=== PATIENT | female | born 1990 | race Caucasian/White ===

== ENCOUNTER → 2016-04-26 | Outpatient (CLI) | payer OTHER ==
--- NOTE | 2016-04-26 19:21 | KCIC ---
PROCEDURE Second trimester OB ultrasound. HISTORY Uterine size discrepancy. TECHNIQUE Second trimester transabdominal OB ultrasound was performed. COMPARISON None. FINDINGS There is a single live intrauterine with heart tones of 153 beats per minute. Estimated gestational age by ultrasound is 19 weeks 0 days for an JUDAH by ultrasound of September 20, 2016, concordant with the JUDAH by LMP of September 18, 2016. Biparietal diameter measures 4.17 centimeters, 18 weeks 4 days. Head circumference measures 15.93 centimeters, 18 weeks 5 days. Abdominal circumference measures 13.68 centimeters, 19 weeks 1 day. Femur length measures 3.06 centimeters, 19 weeks 3 days. Estimated weight is 280 grams. Percentile is 39 percent. HC/AC ratio is 1.16. Placenta is anterior without evidence of previa or abruption. Amniotic fluid index is 10.9 centimeters, within normal limits. Cervix is within normal limits. survey including four-chamber heart, three-vessel cord, cord insertion, stomach, kidneys, bladder, spine, and intracranial contents is within normal limits. Presentation is cephalic. Extremities are within normal limits. IMPRESSION Single live intrauterine measuring 19 weeks 0 days by ultrasound. heart tones are 153 beats per minute. Electronically signed by: Alexys Gregory MD (Apr 26, 2016 19:19:59)
== END | disposition home or self-care (01) ==
LOC: KCIC US 11:31
PROVIDERS: ATTEND Obstetrics & Gynecology
DX: O26.842 Uterine size-date discrepancy, second trimester (principal); Z3A.19 19 weeks gestation of pregnancy
CPT/HCPCS: 76805

== ENCOUNTER 2016-07-28 10:59 | Emergency (ER) | payer OTHER ==
[~2016-07-28] VITALS: Ht 162.6 cm; Wt 76.2 kg
[2016-07-28 11:11] VITALS: BP 103/86
[2016-07-28] MEDS ORDERED: ACET1TAB33 PO (11:42)
[2016-07-28] MEDS ORDERED: AMOX500C PO (11:42)
--- NOTE | 2016-07-28 11:42 | PHYS DOC ---
Past Medical History Past Medical History: Other Additional Past Medical Histor: MS Past Surgical History: No Surgical History Alcohol Use: None Drug Use: None Adult General Chief Complaint Chief Complaint: DENTAL PROBLEM HPI HPI Patient is a 26 year old female presents emergency Department today with complaint of atraumatic right-sided dental pain for approximately 3-4 days. Patient does have a history of poor dental health/dental caries. She denies antibiotic use or dental work within the past 30 days. Patient is currently with her last trimester . She is followed by Dr. Mo. She denies abdominal/pelvic pain, vaginal bleeding or vaginal discharge. Review of Systems Review of Systems Constitutional: Denies fever or chills [] Eyes: Denies change in visual acuity, redness, or eye pain [] HENT: Denies nasal congestion or sore throat [] Respiratory: Denies cough or shortness of breath [] Cardiovascular: No additional information not addressed in HPI [] GI: Denies abdominal pain, nausea, vomiting, bloody stools or diarrhea [] : Denies dysuria or hematuria [] Musculoskeletal: Denies back pain or joint pain [] Integument: Denies rash or skin lesions [] Neurologic: Denies headache, focal weakness or sensory changes [] Endocrine: Denies polyuria or polydipsia [] Allergies Allergies Allergies Coded Allergies Type Severity Reaction Last Updated Verified No Known Drug Allergies 07/28/16 No Physical Exam Physical Exam Constitutional: Well developed, well nourished, no acute distress, non-toxic appearance. HENT: Normocephalic, atraumatic, bilateral external ears normal, oropharynx moist, no oral exudates, nose normal. There is no trismus. There is widespread dental caries and very stages of decay. The area of concern is the second and third right mandibular molar both of decay into the pulp. There is no purulent drainage. There is no adjacent fluctuant pocket suggestive of a gingival abscess. Eyes: PERRLA, EOMI, conjunctiva normal, no discharge. [] Neck: Normal range of motion, no tenderness, supple, no stridor. [] Cardiovascular:Heart rate regular rhythm, no murmur [] Lungs & Thorax: Bilateral breath sounds clear to auscultation [] Abdomen: Bowel sounds normal, soft, no tenderness, no masses, no pulsatile masses. Abdomen is very gravid. She complains of no tenderness to palpation. There is palpable movement. Skin: Warm, dry, no erythema, no rash. [] Back: No tenderness, no CVA tenderness. [] Extremities: No tenderness, no cyanosis, no clubbing, ROM intact, no edema. [] Neurologic: Alert and oriented X 3, normal motor function, normal sensory function, no focal deficits noted. [] Psychologic: Affect normal, judgement normal, mood normal. [] Current Patient Data Vital Signs Vital Signs Date Time Temp Pulse Resp B/P Pulse Ox O2 Delivery O2 Flow Rate FiO2 07/28/16 11:11 97.9 102 18 99 Room Air 97.9 EKG EKG [] Radiology/Procedures Radiology/Procedures [] Course & Med Decision Making Course & Med Decision Making Pertinent Labs and Imaging studies reviewed. (See chart for details) [] Dragon Disclaimer Dragon Disclaimer This electronic medical record was generated, in whole or in part, using a voice recognition dictation system. Departure Departure Impression: Primary Impression: Dental caries Disposition: HOME, SELF-CARE Condition: GOOD Referrals: NO PCP (PCP) Patient Instructions: Dental Caries-Brief Additional Instructions: 1. Take your medications prescribed. 2. Review the discharge instructions provided for self-care and reasons to return to the emergency department. 3. Follow-up with her playroom attendant next week for reevaluation. Scripts Acetaminophen With Codeine (Acetaminophen-Cod #3 Tablet)1 Each Tablet1 Tab PO PRN Q6HRS PRN PAIN #15 TAB Prov:LOUIS HARRIS 07/28/16 Amoxicillin 500 Mg [id number] Mg PO TID #30 CAP Prov:LOUIS HARRIS 07/28/16 LOUIS HARRIS Jul 28, 2016 11:42
== END 2016-07-28 12:00 | disposition home or self-care (01) ==
LOC: ER 10:59
DX: O26.893 Other specified pregnancy related conditions, third trimester (principal); K02.9 Dental caries, unspecified; G35 Multiple sclerosis; Z3A.00 Weeks of gestation of pregnancy not specified
CPT/HCPCS: 99283

== ENCOUNTER 2016-08-10 19:49 | Observation (INO) | payer OTHER ==
[~2016-08-10 19:49] MED LIST: ACET1TAB33 PO; AMOX500C PO
[2016-08-10 20:18] LABS: BILIRUBIN,URINE NEGATIVE (NEG); GLUCOSE,URINE NEGATIVE (NEG); NITRITE,URINE NEGATIVE (NEG); PROTEIN,URINE NEGATIVE (NEG-TRACE)
[2016-08-10 20:21] LABS: BACTERIA,URINE MODERATE /HPF (0-FEW); RBC,URINE OCC /HPF (0-2); SQUAMOUS EPITHELIAL CELL,UR MOD /LPF
[2016-08-10 20:25] LABS: BARBITURATES NEG (NEG); BENZODIAZEPINES NEG (NEG); CANNABINOIDS NEG (NEG); COCAINE NEG (NEG); METHADONE NEG (NEG); OPIATES NEG (NEG); PHENCYCLIDINE NEG (NEG)
[2016-08-10 20:29] LABS: ETHANOL, URINE NEG (NEG)
== END 2016-08-10 21:13 | disposition home or self-care (01) ==
LOC: 3 SO LND 19:49
PROVIDERS: ADMIT Obstetrics & Gynecology; ATTEND Obstetrics & Gynecology
DX: O26.893 Other specified pregnancy related conditions, third trimester (principal); R42 Dizziness and giddiness; Z3A.34 34 weeks gestation of pregnancy
CPT/HCPCS: 81001; 87086; G0378; G0379; G0481; 59025

== ENCOUNTER 2016-11-10 06:59 | Day surgery (SDC) | payer OTHER ==
[~2016-11-10 06:59] MED LIST changes: +ACET325T9 PO; +IBUP-1060 PO
[2016-11-10] MEDS ORDERED: HYDROmorphone 2 MG/ML VIAL IV PRN (07:00)
[2016-11-10] MEDS ORDERED: MORPHINE SULFATE 2 MG/ML DISP.SYRIN. IV PRN (07:00)
[2016-11-10] MEDS ORDERED: LIDOCAINE 1% 1 ML SYRINGE. ID PRN (07:00)
[2016-11-10] MEDS ORDERED: fentaNYL PF VIAL 100 MCG/2 ML VIAL IV PRN ×2 (07:00)
[2016-11-10] MEDS ORDERED: ONDANSETRON PF 4 MG/2 ML VIAL. IV PRN (07:00)
[2016-11-10] MEDS ORDERED: IV RINGERS,LACTATED 1000ML 1,000 ML IV SCH (07:00)
[2016-11-10] MEDS ORDERED: PROCHLORPERAZINE 10 MG/2 ML VIAL. IV PRN (07:00)
[2016-11-10] MEDS ORDERED: DEXAMETHASONE SOD PHOS 20 MG/5 ML VIAL. ONE (07:57)
[2016-11-10] MEDS ORDERED: ONDANSETRON PF 4 MG/2 ML VIAL. ONE (07:57)
[2016-11-10] MEDS ORDERED: PROPOFOL 20 ML IV ONE (07:57)
[2016-11-10] MEDS ORDERED: LIDOCAINE 2% PF Vial for OR 5 ML VIAL. ONE (07:57)
[2016-11-10] MEDS ORDERED: fentaNYL PF VIAL 100 MCG/2 ML VIAL ONE (07:57)
[2016-11-10] MEDS ORDERED: ROCURONIUM 50 MG/5 ML VIAL. ONE (07:57)
[2016-11-10] MEDS ORDERED: BUPIVACAINE-EPI 0.25%-1:200000 50 ML VIAL. ONE (08:02)
[2016-11-10] MEDS ORDERED: MIDAZOLAM HCL/PF 2 MG/2 ML VIAL. ONE (08:07)
[2016-11-10 08:50] LABS: NEG OBC UR NEG; POS OBC UR POS
[2016-11-10] MEDS ORDERED: GLYCOPYRROLATE 1 MG/5 ML VIAL. ONE (08:54)
[2016-11-10] MEDS ORDERED: NEOSTIGMINE METHYLSULFATE 5 MG/5 ML SYRINGE. ONE (08:55)
[2016-11-10] MEDS ORDERED: SEVOFLURANE 16 TO 30 MINUTES. IH ONE (09:03)
--- NOTE | 2016-11-10 09:04 | PDOC ---
BRIEF OPERATIVE NOTE Pre-Op Diagnosis Sterilization Post-Op Diagnosis SAme Procedure Performed [facility] Surgeon Dr. Mo Anesthesia Type: General Blood Loss 5 ml Specimens Obtained none Findings nml size uterus, nml fallopian tubes and ovaries cyndee. Complications none KEM MO Jr, MD Nov 10, 2016 09:04
--- NOTE | 2016-11-10 09:04 | DISCH ---
DISCHARGE INSTRUCTIONS Condition on Discharge Condition on Discharge: Stable Activity After Discharge Activity Instructions for Disc: Activity as tolerated Lifting Instructions after Dis: No heavy lifting Driving Instructions after Dis: Do not drive today Diet after Discharge Diet after Discharge: Regular Contacting the DRJamil after DC Call your doctor for: Concerns you may have Follow-Up Follow up with: Dr. Mo in 1 week. KEM MO Jr, MD Nov 10, 2016 09:04
[2016-11-10] MEDS ORDERED: OXYC-323 PO (09:14)
[2016-11-10] MEDS ORDERED: oxyCODONE/APAP 5/325 1 TAB TABLET PO ONE ×2 (09:30→10:00)
--- NOTE | 2016-11-10 10:06 | OP ---
DATE OF SURGERY: 11/10/2016 PREOPERATIVE DIAGNOSIS: Sterilization. POSTOPERATIVE DIAGNOSIS: Sterilization. PROCEDURE: Laparoscopic bilateral tubal ligation. SURGEON: Anshul Mo M.D. ANESTHESIA: GETA. ESTIMATED BLOOD LOSS: 5 mL. COMPLICATIONS: None. FINDINGS: Normal size uterus, normal fallopian tubes, and normal ovaries bilaterally. SUMMARY: A 26-year-old female who desired permanent sterilization. The patient was counseled on risks, benefits, and expectations as well as the failure rate and voiced clear understanding to proceed. DESCRIPTION OF PROCEDURE: The patient was taken to the surgery suite and placed in dorsal lithotomy position. She was prepped with Betadine solution for vaginal prep and ChloraPrep for abdominal prep. After adequate anesthesia, bivalve speculum was placed vaginally. The anterior lip of the cervix grasped with a single tooth tenaculum. The uterine acorn manipulator was then placed. The bivalve speculum was removed. Attention was now placed on abdomen. Small transverse skin incision made just below the umbilicus with a scalpel. Veress needle was then placed through the infraumbilical incision site. The abdomen was allowed to insufflate up to 1-1/2 liters CO2 gas. The Veress needle was then removed, 5-mm trocar was placed. Scope was positioned. The uterus appeared normal. Fallopian tubes and ovaries appeared normal. A second incision was made in the left lower quadrant with a scalpel in which 8-mm trocar was placed. The Filshie clip applicator was then placed and a Filshie clip was placed on the isthmus region of the right fallopian tube, totally occluding the fallopian tube. Same process took place in the left fallopian tube. The trocars were then removed under direct visualization. The abdomen was allowed to deflate as much as possible along with mechanical manipulation. The 2 skin incisions reapproximated with 4-0 Vicryl suture in subcuticular manner. A 0.25% Marcaine with epinephrine was injected at each incision site. Uterine acorn manipulator and single tooth tenaculum were removed. The patient tolerated the procedure well and was taken to recovery room in stable condition. Sponge, needle counts correct x 3. ANSHUL MO MD DR: CHRIS/get JOB#: [id number] / [id number]
[2016-11-10 10:07] VITALS: BP 97/55
== END 2016-11-10 10:19 | disposition home or self-care (01) ==
LOC: SURG 06:59
PROVIDERS: ATTEND Obstetrics & Gynecology
DX: Z30.2 Encounter for sterilization (principal); J45.909 Unspecified asthma, uncomplicated; Z86.69 Personal history of other diseases of the nervous system and sense organs; Z87.440 Personal history of urinary (tract) infections; Z72.0 Tobacco use
CPT/HCPCS: 58671; 81025; J1100; J2001; J2250; J2405; J2704; J2710; J3010; J3490; A4215; J7120

== ENCOUNTER → 2017-05-01 | Outpatient (CLI) | payer OTHER ==
[2017-05-01] MEDS: GADOBUTROL 7.5 MMOL/7.5 ML VIAL IV (09:10)
== END | disposition home or self-care (01) ==
LOC: KCIC MRI 08:09
DX: G35 Multiple sclerosis (principal); R20.0 Anesthesia of skin; R20.2 Paresthesia of skin
CPT/HCPCS: 70553; A9585

== ENCOUNTER 2017-05-24 07:34 | Day surgery (SDC) | payer OTHER ==
[2017-05-24] MEDS: IV RINGERS,LACTATED 1000ML 1,000 ML IV ×2 (07:00)
[~2017-05-24 07:34] MED LIST changes: -ACET1TAB33 PO; -ACET325T9 PO; -AMOX500C PO; +HYDROmorphone 2 MG/ML VIAL IV; -IBUP-1060 PO; +LIDOCAINE 1% PF 2 ML VIAL. ID; +MORPHINE SULFATE 2 MG/ML DISP.SYRIN. IV; +ONDANSETRON PF 4 MG/2 ML VIAL. IV; +PROCHLORPERAZINE 10 MG/2 ML VIAL. IV; +fentaNYL PF VIAL 100 MCG/2 ML VIAL IV
[2017-05-24 08:44] LABS: NEG OBC UR NEG; POS OBC UR POS; U PREG PATIENT NEGATIVE (NEG)
[2017-05-24] MEDS ORDERED: FAMOTIDINE 20 MG/2 ML VIAL ×2 (10:51)
[2017-05-24] MEDS ORDERED: ONDANSETRON PF 4 MG/2 ML VIAL. ×2 (10:51)
[2017-05-24] MEDS ORDERED: PROPOFOL 20 ML IV ×4 (10:51→11:15)
[2017-05-24] MEDS ORDERED: DEXAMETHASONE SOD PHOS 20 MG/5 ML VIAL. ×2 (10:51)
[2017-05-24] MEDS ORDERED: LIDOCAINE 2% PF Vial for OR 5 ML VIAL. ×2 (10:51)
[2017-05-24] MEDS ORDERED: KETOROLAC 30 MG/ML INJ FOR OR. INJ ×2 (10:51)
[2017-05-24] MEDS: LIDOCAINE 1%/EPI 1:100,000 20 ML VIAL. ×2 (11:20)
[2017-05-24] MEDS: FERRIC SUBSULFATE 8 ML SOL.W.APPL TP ×2 (11:20)
[2017-05-24] MEDS ORDERED: SEVOFLURANE 16 TO 30 MINUTES. IH ×2 (11:27)
[2017-05-24] MEDS: oxyCODONE/APAP 5/325 1 TAB TABLET PO ×2 (12:09)
== END 2017-05-24 12:49 | disposition home or self-care (01) ==
LOC: SURG 07:34
DX: N87.9 Dysplasia of cervix uteri, unspecified (principal); J45.909 Unspecified asthma, uncomplicated; Z86.69 Personal history of other diseases of the nervous system and sense organs; Z98.51 Tubal ligation status; Z87.440 Personal history of urinary (tract) infections; Z72.0 Tobacco use
CPT/HCPCS: 57520; 81025; 88307; 88342; J0690; J1100; J1885; J2405; J2704; J3490; S0028

== ENCOUNTER → 2017-06-12 | Outpatient (CLI) | payer OTHER ==
[2017-06-12 09:29] LABS: ADD MAN DIFF? NO
[2017-06-12 09:36] LABS: BASO # 0.1 x10^3/uL (0.0-0.2); BASO % 1 % (0-3); EOS # 0.4 x10^3/uL (0.0-0.7); EOS % 6 % (0-3); HEMOGLOBIN 13.6 g/dL (12.0-15.5); LYMPH % 30 % (24-48); MEAN CORPUSCULAR HEMOGLOBIN 29 pg (25-35); MEAN CORPUSCULAR HGB CONC 33 g/dL (31-37); MEAN CORPUSCULAR VOLUME 88 fL (79-100); MONO # 0.7 x10^3/uL (0.0-1.1); MONO % 10 % (0-9); NEUT # 3.5 x10^3uL (1.8-7.7); NEUT % 53 % (31-73); PLATELET COUNT 308 x10^3/uL (140-400); RED BLOOD COUNT 4.68 x10^6/uL (3.50-5.40); WHITE BLOOD COUNT 6.6 x10^3/uL (4.0-11.0)
[2017-06-12 09:51] LABS: ALBUMIN 3.7 g/dL (3.4-5.0); ALBUMIN/GLOBULIN RATIO 0.8 (1.0-1.7); ALK PHOS 83 U/L (46-116); ALT (SGPT) 37 U/L (14-59); ANION GAP 9 (6-14); AST (SGOT) 23 U/L (15-37); BLOOD UREA NITROGEN 6 mg/dL (7-20); BUN/CREATININE RATIO 9 (6-20); CALCIUM 9.5 mg/dL (8.5-10.1); CARBON DIOXIDE 28 mmol/L (21-32); CHLORIDE 103 mmol/L (98-107); CREATININE 0.7 mg/dL (0.6-1.0); GFR 99.6; GLUCOSE 82 mg/dL (70-99); POTASSIUM 3.6 mmol/L (3.5-5.1); SODIUM 140 mmol/L (136-145); TOTAL BILIRUBIN 0.3 mg/dL (0.2-1.0); TOTAL PROTEIN 8.6 g/dL (6.4-8.2)
== END | disposition home or self-care (01) ==
LOC: LAB 09:19
DX: G35 Multiple sclerosis (principal)
CPT/HCPCS: 36415; 80053; 85025

== ENCOUNTER 2017-07-27 13:06 | Observation (INO) | payer OTHER ==
[~2017-07-27 13:06] MED LIST changes: -MORPHINE SULFATE 2 MG/ML DISP.SYRIN. IV; -ONDANSETRON PF 4 MG/2 ML VIAL. IV; -PROCHLORPERAZINE 10 MG/2 ML VIAL. IV; +ceFAZolin 2GM PREMIX 2 GM/50 ML BAG IV
[2017-07-27] MEDS ORDERED: ESTROGENS, CONJ VAGINAL CREAM 30GM TUBE. (13:40)
[2017-07-27] MEDS ORDERED: METHYLENE BLUE 1% 10 ML VIAL. (13:40)
[2017-07-27 13:55] LABS: ADD MAN DIFF? NO
[2017-07-27] MEDS: IV RINGERS,LACTATED 1000ML 1,000 ML IV (13:55)
[2017-07-27 13:58] LABS: BASO # 0.1 x10^3/uL (0.0-0.2); BASO % 1 % (0-3); EOS # 0.3 x10^3/uL (0.0-0.7); EOS % 5 % (0-3); HEMATOCRIT 38.1 % (36.0-47.0); HEMOGLOBIN 12.8 g/dL (12.0-15.5); LYMPH # 1.9 x10^3/uL (1.0-4.8); LYMPH % 26 % (24-48); MEAN CORPUSCULAR HEMOGLOBIN 30 pg (25-35); MEAN CORPUSCULAR HGB CONC 34 g/dL (31-37); MEAN CORPUSCULAR VOLUME 88 fL (79-100); MONO # 0.6 x10^3/uL (0.0-1.1); MONO % 8 % (0-9); NEUT # 4.5 x10^3uL (1.8-7.7); NEUT % 61 % (31-73); PLATELET COUNT 237 x10^3/uL (140-400); RED BLOOD COUNT 4.35 x10^6/uL (3.50-5.40); RED CELL DISTRIBUTION WIDTH 14.1 % (11.5-14.5); WHITE BLOOD COUNT 7.4 x10^3/uL (4.0-11.0)
[2017-07-27 14:00] LABS: NEG OBC UR NEG; POS OBC UR POS
[2017-07-27 14:01] LABS: U PREG PATIENT NEGATIVE (NEG)
[2017-07-27] MEDS ORDERED: LIDOCAINE 1% PF 5 ML VIAL. (15:21)
[2017-07-27] MEDS ORDERED: FAMOTIDINE 20 MG/2 ML VIAL (15:27)
[2017-07-27] MEDS ORDERED: PROPOFOL 20 ML IV (15:27)
[2017-07-27] MEDS ORDERED: ONDANSETRON PF 4 MG/2 ML VIAL. (15:27)
[2017-07-27] MEDS ORDERED: fentaNYL PF VIAL 100 MCG/2 ML VIAL (15:29)
[2017-07-27] MEDS ORDERED: MIDAZOLAM HCL/PF 2 MG/2 ML VIAL. (15:29)
[2017-07-27] MEDS ORDERED: ROCURONIUM 50 MG/5 ML VIAL. (15:29)
[2017-07-27] MEDS: LIDOCAINE 1%/EPI 1:100,000 20 ML VIAL. (16:02)
[2017-07-27] MEDS ORDERED: KETOROLAC 30 MG/ML INJ FOR OR. INJ (16:23)
[2017-07-27] MEDS ORDERED: GLYCOPYRROLATE 1 MG/5 ML VIAL. (16:25)
[2017-07-27] MEDS ORDERED: NEOSTIGMINE METHYLSULFATE 5 MG/5 ML SYRINGE. (16:25)
[2017-07-27] MEDS ORDERED: ZOLPIDEM 5 MG TABLET. PO (16:45)
[2017-07-27] MEDS ORDERED: DEXTROSE 50% 25 GM / 50ML DISP.SYRIN. IV (16:45)
[2017-07-27] MEDS ORDERED: ONDANSETRON PF 4 MG/2 ML VIAL. IV (16:45)
[2017-07-27] MEDS ORDERED: PROCHLORPERAZINE 10 MG/2 ML VIAL. IV (16:45)
[2017-07-27] MEDS ORDERED: diphenhydrAMINE 50 MG/ML VIAL IV (16:45)
[2017-07-27] MEDS ORDERED: diphenhydrAMINE HCL 25 MG CAPSULE PO (16:45)
[2017-07-27] MEDS ORDERED: SIMETHICONE 80 MG TAB.CHEW PO (16:45)
[2017-07-27] MEDS ORDERED: oxyCODONE/APAP 5/325 1 TAB TABLET PO (16:45)
[2017-07-27] MEDS ORDERED: CALCIUM CARBONATE 500 MG TAB.CHEW PO (16:45)
[2017-07-27] MEDS ORDERED: 0.9 % SODIUM CHLORIDE 10 ML DISP.SYRIN. IV (16:45)
[2017-07-27] MEDS: PROCHLORPERAZINE 10 MG/2 ML VIAL. IV (16:51)
[2017-07-27] MEDS: fentaNYL PF VIAL 100 MCG/2 ML VIAL IV ×2 (16:52→17:09)
[2017-07-27] MEDS ORDERED: MORPHINE SULFATE 4 MG/ML DISP.SYRIN. (17:05)
[2017-07-27] MEDS: MORPHINE SULFATE 4 MG/ML DISP.SYRIN. IV (17:36)
[2017-07-27] MEDS: ONDANSETRON PF 4 MG/2 ML VIAL. IV (18:30)
[2017-07-27] MEDS: KETOROLAC 30 MG/ML INJ. IV (21:29)
[2017-07-27] MEDS: GABAPENTIN 300 MG CAPSULE. PO (21:42)
[2017-07-28 05:51] LABS: BASO % 0 % (0-3); EOS % 0 % (0-3); HEMATOCRIT 34.6 % (36.0-47.0); HEMOGLOBIN 11.6 g/dL (12.0-15.5); LYMPH # 1.2 x10^3/uL (1.0-4.8); LYMPH % 8 % (24-48); MEAN CORPUSCULAR HEMOGLOBIN 29 pg (25-35); MEAN CORPUSCULAR HGB CONC 34 g/dL (31-37); MEAN CORPUSCULAR VOLUME 87 fL (79-100); MONO # 1.1 x10^3/uL (0.0-1.1); MONO % 7 % (0-9); NEUT # 13.4 x10^3uL (1.8-7.7); NEUT % 85 % (31-73); PLATELET COUNT 230 x10^3/uL (140-400); RED BLOOD COUNT 3.97 x10^6/uL (3.50-5.40); WHITE BLOOD COUNT 15.8 x10^3/uL (4.0-11.0)
[2017-07-28] MEDS: KETOROLAC 30 MG/ML INJ. IV (05:59)
[2017-07-28] MEDS: GABAPENTIN 300 MG CAPSULE. PO (06:00)
[2017-07-28 06:07] LABS: ADD MAN DIFF? YES
[2017-07-28 10:21] LABS: % BANDS 1 % (0-9); % LYMPHS 4 % (24-48); % MONOS 3 % (0-10); % SEGS 92 % (35-66)
[2017-07-28 10:22] LABS: PLT ESTIMATE ADEQUATE (ADEQUATE)
[2017-07-28] MEDS ORDERED: NAPROXEN 500 MG TABLET PO (21:00)
== END 2017-07-28 17:02 | disposition home or self-care (01) ==
LOC: SURG 13:06 → 3 NORTH 17:38
DX: D06.9 Carcinoma in situ of cervix, unspecified (principal); N80.0 Endometriosis of uterus; N72 Inflammatory disease of cervix uteri; Z98.51 Tubal ligation status
CPT/HCPCS: 36415; 81025; 85007; 85025; 86850; 86900; 86901; 88307; 96374; 96375; 96376; G0378; G0379; J0690; J0780; J1885; J2250; J2270; J2405; J2704; J2710; J3010; J3490; Q9968; S0028

== ENCOUNTER 2017-11-06 21:01 | Emergency (ER) | payer OTHER | END 2017-11-06 22:29 | disposition home or self-care (01) | LOC: ER 21:01 | DX: M54.2 Cervicalgia (principal); M25.511 Pain in right shoulder; V49.59XA Passenger injured in collision with other motor vehicles in traffic accident, initial encounter; Y93.89 Activity, other specified; Y99.8 Other external cause status; Y92.488 Other paved roadways as the place of occurrence of the external cause | CPT/HCPCS: 72040; 99284 ==

== ENCOUNTER → 2017-11-22 | Outpatient (CLI) | payer OTHER ==
[2017-11-22 09:40] LABS: ADD MAN DIFF? NO
[2017-11-22 10:02] LABS: BASO % 1 % (0-3); EOS # 0.2 x10^3/uL (0.0-0.7); EOS % 3 % (0-3); HEMATOCRIT 39.4 % (36.0-47.0); HEMOGLOBIN 13.6 g/dL (12.0-15.5); LYMPH # 1.7 x10^3/uL (1.0-4.8); LYMPH % 26 % (24-48); MEAN CORPUSCULAR HEMOGLOBIN 31 pg (25-35); MEAN CORPUSCULAR HGB CONC 35 g/dL (31-37); MEAN CORPUSCULAR VOLUME 88 fL (79-100); MONO # 0.7 x10^3/uL (0.0-1.1); MONO % 10 % (0-9); NEUT # 3.9 x10^3uL (1.8-7.7); NEUT % 60 % (31-73); PLATELET COUNT 262 x10^3/uL (140-400); RED BLOOD COUNT 4.46 x10^6/uL (3.50-5.40); RED CELL DISTRIBUTION WIDTH 13.3 % (11.5-14.5); WHITE BLOOD COUNT 6.4 x10^3/uL (4.0-11.0)
[2017-11-22 10:50] LABS: ALBUMIN 3.6 g/dL (3.4-5.0); ALK PHOS 63 U/L (46-116); ALT (SGPT) 42 U/L (14-59); AST (SGOT) 29 U/L (15-37); DIRECT BILIRUBIN 0.1 mg/dL (0.0-0.2); TOTAL BILIRUBIN 0.5 mg/dL (0.2-1.0); TOTAL PROTEIN 7.9 g/dL (6.4-8.2)
[2017-11-25 12:28] LABS: T-SPOT TB TEST(OXFORD) SEE SEPARATE REPORT
== END | disposition home or self-care (01) ==
LOC: LAB 09:21
DX: G35 Multiple sclerosis (principal)
CPT/HCPCS: 36415; 80076; 85025; 86481

== ENCOUNTER → 2018-02-22 | Outpatient (CLI) | payer OTHER ==
[2017-11-06 21:38] VITALS: BP 121/72
[~2018-02-22] MED LIST changes: +ACET1TAB33 PO; +ACET325T9 PO; +AMOX500C PO; +CYCL5TAB PO; +GLAT40SY SQ; -HYDROmorphone 2 MG/ML VIAL IV; +IBUP-1060 PO; -LIDOCAINE 1% PF 2 ML VIAL. ID; +NAPR-514 PO; +OXYC-323 PO; +PNV1TABL25 PO; -ceFAZolin 2GM PREMIX 2 GM/50 ML BAG IV; -fentaNYL PF VIAL 100 MCG/2 ML VIAL IV
[2018-02-22 12:34] LABS: PREG TEST PT QUAL NEGATIVE (NEG)
== END | disposition home or self-care (01) ==
LOC: LAB 11:51
PROVIDERS: ATTEND Family Medicine
DX: G35 Multiple sclerosis (principal)
CPT/HCPCS: 84703

== ENCOUNTER → 2018-07-31 | Outpatient (CLI) | payer OTHER ==
[2017-11-06 21:38] VITALS: BP 121/72
[~2018-07-31] MED LIST changes: +CITA10TA4 PO; +GADOBUTROL 7.5 MMOL/7.5 ML VIAL IV ONE; -OXYC-323 PO; +OXYC1TAB15 PO; +TERI7TAB PO
--- NOTE | 2018-07-31 12:09 | KCIC ---
MRI of the Brain without and with Contrast 07/31/2018 Clinical History: Multiple sclerosis. Technique: Unenhanced T1-weighted and FLAIR sagittal and axial and gradient echo, T2-weighted and diffusion-weighted axial images of the brain were obtained. After the intravenous administration of 7 cc of Gadavist, enhanced T1-weighted axial, sagittal and coronal images of the brain were obtained. Findings: Comparison study is dated 05/01/2017. Patchy, confluent and multiple rounded and oval-shaped areas of abnormally increased signal intensity are seen within the periventricular, deep and subcortical white matter of both cerebral hemispheres along with the cerebellum on the FLAIR and T2-weighted images consistent with the patient's history of multiple sclerosis. These lesions have not significantly changed since the previous examination. No new lesion is seen. A 3 mm nodular area of enhancement is seen involving a lesion within the left frontal lobe consistent with active demyelination. This is new since the previous examination. The small areas of abnormal enhancement seen within the left frontal and right posterior temporal lobe on the previous examination have resolved. No additional enhancing lesion is seen. A 1.2 cm enhancing extra-axial mass is seen arising superiorly from the right lateral aspect of the tentorium consistent with a meningioma. There is no significant associated mass effect. This has increased in size since the previous examination where it measured 9 mm in greatest diameter. A 3.6 cm arachnoid cyst is seen posterior to the midline cerebellum without significant mass effect. No acute parenchymal abnormality is seen. No extra-axial fluid collection is noted. There is no MRI evidence of acute ischemia/infarction. Mild mucosal thickening in seen scattered throughout the paranasal sinuses. There are minimal bilateral mastoid effusions. Normal flow voids are seen within the major vascular structures surrounding the brain parenchyma. IMPRESSION: 1. Findings are seen consistent with the patient's history of multiple sclerosis. These have not significantly changed. No new lesion is seen. A 3 mm area of enhancement consistent with active demyelination is seen involving a lesion within the left frontal white matter. This is new since the previous examination. The areas of abnormal enhancement seen on the previous examination have resolved. No additional area of abnormal contrast enhancement is seen. 2. A 1.2 cm meningioma is seen arising from the superior aspect of the right tentorium. This has increased in size since the previous examination where it measured 9 mm in greatest diameter. There is no significant associated mass effect. Electronically signed by: Mynor Meyer MD (07/31/2018 12:06 PM) [facility]
== END | disposition home or self-care (01) ==
LOC: KCIC MRI 09:29
PROVIDERS: ATTEND Psychiatry & Neurology Neurology with Special Qualifications in Child Neurology
DX: G35 Multiple sclerosis (principal); D32.0 Benign neoplasm of cerebral meninges; Z87.891 Personal history of nicotine dependence
CPT/HCPCS: 70553; A9585

== ENCOUNTER → 2018-09-30 | Outpatient (CLI) | payer OTHER ==
[2017-11-06 21:38] VITALS: BP 121/72
[~2018-09-30] MED LIST changes: -GADOBUTROL 7.5 MMOL/7.5 ML VIAL IV ONE
[2018-09-30 10:36] LABS: BASO % 1 % (0-3); EOS # 0.2 x10^3/uL (0.0-0.7); EOS % 3 % (0-3); HEMATOCRIT 39.3 % (36.0-47.0); HEMOGLOBIN 13.4 g/dL (12.0-15.5); LYMPH # 2.1 x10^3/uL (1.0-4.8); LYMPH % 35 % (24-48); MEAN CORPUSCULAR HEMOGLOBIN 30 pg (25-35); MEAN CORPUSCULAR HGB CONC 34 g/dL (31-37); MEAN CORPUSCULAR VOLUME 88 fL (79-100); MONO # 0.5 x10^3/uL (0.0-1.1); MONO % 9 % (0-9); NEUT # 3.1 x10^3uL (1.8-7.7); NEUT % 52 % (31-73); PLATELET COUNT 228 x10^3/uL (140-400); RED BLOOD COUNT 4.45 x10^6/uL (3.50-5.40); RED CELL DISTRIBUTION WIDTH 13.3 % (11.5-14.5)
[2018-09-30 10:58] LABS: ALBUMIN 3.5 g/dL (3.4-5.0); DIRECT BILIRUBIN 0.1 mg/dL (0.0-0.2); TOTAL BILIRUBIN 0.4 mg/dL (0.2-1.0); TOTAL PROTEIN 7.4 g/dL (6.4-8.2)
== END | disposition home or self-care (01) ==
LOC: LAB 10:19
PROVIDERS: ATTEND Psychiatry & Neurology Neurology with Special Qualifications in Child Neurology
DX: G35 Multiple sclerosis (principal)
CPT/HCPCS: 36415; 80076; 85025

== ENCOUNTER 2018-10-14 14:51 | Emergency (ER) | payer OTHER ==
[~2018-10-14] VITALS: Ht 160 cm; Wt 69.9 kg
[2018-10-14 15:03] VITALS: BP 118/80
[2018-10-14] MEDS: diphenhydrAMINE HCL 25 MG CAPSULE PO ONE (15:09)
[2018-10-14] MEDS: FAMOTIDINE 20 MG TABLET. PO ONE (15:09)
[2018-10-14] MEDS: DEXAMETHASONE SOD PHOS 4 MG/ML VIAL IM ONE (15:10)
[2018-10-14] MEDS ORDERED: PRED50TA PO (15:13)
--- NOTE | 2018-10-14 15:14 | PHYS DOC ---
Past Medical History Past Medical History: Other Additional Past Medical Histor: MS Past Surgical History: Hysterectomy, Tubal ligation Alcohol Use: None Drug Use: None Adult General Chief Complaint Chief Complaint: SKIN PROBLEM HPI HPI Patient is a 28 year old female presents to the ED complaining of rash times one day. Patient started taking Lyrica and she developed a rash after. States she stopped taking Lyrica because the rash was getting worse. States the rash is itchy. Patient has never had a previous drug reaction. Denies chest pain, shortness of breath, difficulty swallowing, tongue swelling, lip swelling, fever or nausea/vomiting. Review of Systems Review of Systems Constitutional: Denies fever or chills [] Eyes: Denies change in visual acuity, redness, or eye pain [] HENT: Denies nasal congestion or sore throat [] Respiratory: Denies cough or shortness of breath [] Cardiovascular: No additional information not addressed in HPI [] GI: Denies abdominal pain, nausea, vomiting, bloody stools or diarrhea [] : Denies dysuria or hematuria [] Musculoskeletal: Denies back pain or joint pain [] Integument: Complains of rash to entire body. Neurologic: Denies headache, focal weakness or sensory changes [] All other systems were reviewed and found to be within normal limits, except as documented in this note. Current Medications Current Medications Current Medications Medications (Trade) Dose Ordered Sig/Stephanie Start Time Stop Time Status Last Admin Dose Admin Dexamethasone Sodium Phosphate (Decadron) 10 mg 1X ONCE 10/14/18 15:15 10/14/18 15:16 Diphenhydramine HCl (Benadryl) 25 mg 1X ONCE 10/14/18 15:15 10/14/18 15:16 Famotidine (Pepcid) 20 mg 1X ONCE 10/14/18 15:15 10/14/18 15:16 Allergies Allergies Allergies Coded Allergies Type Severity Reaction Last Updated Verified pregabalin Allergy Severe HIVES 10/14/18 Yes Physical Exam Physical Exam Constitutional: Well developed, well nourished, no acute distress, non-toxic appearance. [] HENT: Normocephalic, atraumatic, bilateral external ears normal, oropharynx moist, no oral exudates, nose normal. [] Eyes: PERRLA, EOMI, conjunctiva normal, no discharge. [] Neck: Normal range of motion, no tenderness, supple, no stridor. [] Cardiovascular:Heart rate regular rhythm, no murmur [] Lungs & Thorax: Bilateral breath sounds clear to auscultation [] Abdomen: Bowel sounds normal, soft, no tenderness, no masses, no pulsatile masses. [] Skin: Warm, dry. Generalized macular erythematous rash to entire body. Back: No tenderness, no CVA tenderness. [] Extremities: No tenderness, no cyanosis, no clubbing, ROM intact, no edema. [] Neurologic: Alert and oriented X 3, normal motor function, normal sensory function, no focal deficits noted. [] Psychologic: Affect normal, judgement normal, mood normal. [] Current Patient Data Vital Signs Vital Signs Date Time Temp Pulse Resp B/P (MAP) Pulse Ox O2 Delivery O2 Flow Rate FiO2 10/14/18 15:03 98.1 101 18 118/80 (93) 97 Room Air 98.1 EKG EKG [] Radiology/Procedures Radiology/Procedures [] Course & Med Decision Making Course & Med Decision Making Pertinent Labs and Imaging studies reviewed. (See chart for details) []Patient given Decadron, Benadryl and penicillin in the ED. Patients itching and rash improved. We'll treat with short course of prednisone outpatient. Discussed symptomatic treatment and [id number]-wleetus medications. Discussed not taking Lyrica and following up with her PCP. Discussed reasons to return to the ED. Patient understands and agrees with plan. Dragon Disclaimer Dragon Disclaimer This electronic medical record was generated, in whole or in part, using a voice recognition dictation system. Departure Departure Impression: Primary Impression: Drug reaction Disposition: 01 HOME, SELF-CARE Condition: IMPROVED Referrals: NO PCP (PCP) Patient Instructions: Drug Allergy Scripts Prednisone (PREDNISONE) 50 Mg Tablet 1 TAB PO DAILY, #5 TAB Prov: JOSE ENRIQUE RUSH 10/14/18 JOSE ENRIQUE RUSH Oct 14, 2018 15:14
== END 2018-10-14 15:22 | disposition home or self-care (01) ==
LOC: ER 14:51
DX: L27.0 Generalized skin eruption due to drugs and medicaments taken internally (principal); T42.6X5A Adverse effect of other antiepileptic and sedative-hypnotic drugs, initial encounter; Y92.89 Other specified places as the place of occurrence of the external cause; Z88.8 Allergy status to other drugs, medicaments and biological substances
CPT/HCPCS: 96372; 99283; J1100; Q0163

== ENCOUNTER 2018-12-04 17:23 | Emergency (ER) | payer OTHER ==
[~2018-12-04] VITALS: Ht 160 cm; Wt 71.2 kg
[~2018-12-04 17:23] MED LIST changes: +PRED50TA PO
[2018-12-04 17:25] VITALS: BP 145/80
[2018-12-04] MEDS ORDERED: ACETAMINOPHEN 500 MG TABLET PO ONE (18:00)
[2018-12-04] MEDS ORDERED: HYDR-2761 PO (18:52)
--- NOTE | 2018-12-04 18:53 | PHYS DOC ---
Past Medical History Past Medical History: Other Additional Past Medical Histor: MS Past Surgical History: Hysterectomy, Tubal ligation Alcohol Use: None Drug Use: None Adult General Chief Complaint Chief Complaint: TOE PROBLEM HPI HPI Patient is a 28 year old female who presents to the emergency department with complaints of lateral left foot pain specifically in her third, fourth, and fifth toes. Patient states she was outside [facility] when she misstepped in her yard and twisted her foot. She complains of bruising and swelling to the third, fourth, and fifth toes. She currently rates her pain a 9 out of 10 on the pain scale, the pain increases when she ambulates or applies pressure to the site. There are no alleviating factors. Patient states she did not take any medications prior to arrival. ROS Patient denies any fever, numbness, tingling, or weakness of the affected extremity. She denies any head, neck, or back pain as a result of the injury. All other ROS is neg unless otherwise noted in HPI. Review of Systems Review of Systems See Above Current Medications Current Medications Current Medications Medications (Trade) Dose Ordered Sig/Stephanie Start Time Stop Time Status Last Admin Dose Admin Acetaminophen (Tylenol) 1,000 mg 1X ONCE 12/04/18 18:00 12/04/18 18:01 DC 12/04/18 18:32 1,000 MG Allergies Allergies Allergies Coded Allergies Type Severity Reaction Last Updated Verified pregabalin Allergy Severe HIVES 10/14/18 Yes Physical Exam Physical Exam See Above Constitutional: Well developed, well nourished, no acute distress, non-toxic appearance. [] HENT: Normocephalic, atraumatic, bilateral external ears normal, nose normal. [] Eyes: PERRLA, EOMI, conjunctiva normal, no discharge. [] Neck: Normal range of motion, no stridor. [] Cardiovascular:Heart rate regular rhythm Lungs & Thorax: Lungs Skin: Warm, dry, no erythema, no rash; bruising noted to left foot third, fourth, and fifth toes cap refill remains less than 2 seconds [] Extremities: Lateral left foot tenderness to palpation with limited ROM due to pain, no cyanosis, no clubbing; left fifth toe tenderness to palpation, 1+ edema, and bruising; right fourth toe TTP; right third toe TTP; Neurologic: Alert and oriented X 3, normal motor function, normal sensory function, no focal deficits noted. [] Psychologic: Affect normal, judgement normal, mood normal. [] Current Patient Data Vital Signs Vital Signs Date Time Temp Pulse Resp B/P (MAP) Pulse Ox O2 Delivery O2 Flow Rate FiO2 12/04/18 17:25 97.6 87 16 145/80 (101) 97 Room Air 97.6 EKG EKG [] Radiology/Procedures Radiology/Procedures Mildly displaced fracture of the proximal phalanx of the left fifth toe, read by Dr. Nikki Hernandez[] Course & Med Decision Making Course & Med Decision Making Pertinent Labs and Imaging studies reviewed. (See chart for details) dx: Acute pain in the left foot, left fifth toe proximal phalanx fracture Patient's fifth and fourth toes were sofia taped together by the autocad technician, she was placed in a postop shoe. A prescription was written for hydrocodone 5/325 mg tablets take one half to one tablet every 6 hours as needed for pain, #12. Patient was instructed to follow-up with her primary care doctor or Dr. Soto if symptoms persist, return to the ER if symptoms worsen. Weightbearing as tolerated. Patient verbalized an understanding of home care, medications, follow-up, and return to ED instructions and was in agreement with the plan of care. [] Dragon Disclaimer Dragon Disclaimer This electronic medical record was generated, in whole or in part, using a voice recognition dictation system. Departure Departure Impression: Primary Impression: Acute pain of left foot Additional Impression: Fracture of proximal phalanx of toe of left foot Disposition: 01 HOME, SELF-CARE Condition: STABLE Referrals: NO PCP (PCP) RAYSHAWN SOTO MD Patient Instructions: Sofia Taping of Toes, Toe Fracture Additional Instructions: Keep toes sofia taped. Fill prescription and use as directed. Recommend application of ice and elevation of affected extremity to help reduce pain. Follow up with your primary care doctor or Dr. Soto if symptoms persist, return to the ER if symptoms worsen. Scripts Hydrocodone Bit/Acetaminophen (HYDROCODONE-APAP 5-325 ) 1 Tab Tablet 1 TAB PO PRN Q6HRS PRN for PAIN for 3 Days, #12 TAB 0 Refills Prov: HELENE DELEON APRN 12/04/18 Problem Qualifiers HELENE DELEON APRN Dec 04, 2018 18:53
--- NOTE | 2018-12-05 05:11 | RAD ---
Three-view right foot dated 12/04/2018. No comparison available. Clinical data indication: Pain after fall. FINDINGS: 3 views of right foot show an oblique fracture through the fifth proximal phalanx, mildly displaced. No additional fractures are seen. Mild pes cavus deformity. IMPRESSION: Mildly displaced oblique fracture through the fifth proximal phalanx. Electronically signed by: Luis Whtie MD (12/05/2018 5:08 AM) [id number]
== END 2018-12-04 19:02 | disposition home or self-care (01) ==
LOC: ER 17:23
DX: S92.512A Displaced fracture of proximal phalanx of left lesser toe(s), initial encounter for closed fracture (principal); Z88.8 Allergy status to other drugs, medicaments and biological substances; X50.9XXA Other and unspecified overexertion or strenuous movements or postures, initial encounter; Y93.89 Activity, other specified; Y92.096 Garden or yard of other non-institutional residence as the place of occurrence of the external cause; Y99.8 Other external cause status
CPT/HCPCS: 73630; 99284

== ENCOUNTER 2020-10-31 21:09 | Emergency (ER) | payer OTHER ==
[~2020-10-31] VITALS: Ht 160 cm; Wt 85.0 kg
[~2020-10-31 21:09] MED LIST changes: +HYDR-2761 PO
[2020-10-31 21:48] VITALS: BP 116/82
[2020-10-31] MEDS ORDERED: KETOROLAC 30 MG/ML VIAL. IM ONE (22:15)
[2020-10-31] MEDS ORDERED: ORPHENADRINE CITRATE 60 MG/2 ML VIAL. IM ONE (22:15)
[2020-10-31] MEDS ORDERED: CYCL10TA2 PO (22:51)
--- NOTE | 2020-10-31 22:52 | ED.ADGEN ---
Past Medical History Past Medical History: Other Additional Past Medical Histor: MS Past Surgical History: Hysterectomy, Tubal ligation Smoking Status: Current Every Day Smoker Alcohol Use: None Drug Use: None, Amphetamine (Quit using 3 years ago) General Adult EDM: Chief Complaint: HEADACHE HPI: HPI: Patient is a 30 year old female who presents emergency department with complaints of a posterior headache that began today. Patient denies any numbness, tingling, vision changes, photosensitivity, nausea, or vomiting with the headache. She denies any neck pain or nuchal rigidity. She denies any fever, cough, body aches, fatigue, abdominal pain, shortness of breath, or chest pain. Patient reports a history of MS but states that this is not like her MS. Patient denies any new numbness, tingling, or weakness. She denies any dysphagia or dysarthria. The patient currently rates pain 9 out of 10 on the pain scale, she tried taking Tylenol at home with no relief of her symptoms. Review of Systems: Review of Systems: Complete ROS is negative unless otherwise noted in HPI. Current Medications: Current Medications Medications (Trade) Dose Ordered Sig/Stephanie Start Time Stop Time Status Last Admin Dose Admin Ketorolac Tromethamine (Toradol 30mg Vial) 30 mg 1X ONCE 10/31/20 22:15 10/31/20 22:16 DC 10/31/20 22:14 30 MG Orphenadrine Citrate (Norflex) 60 mg 1X ONCE 10/31/20 22:15 10/31/20 22:16 DC 10/31/20 22:13 60 MG Allergies: Allergies: Allergies Coded Allergies Type Severity Reaction Last Updated Verified pregabalin Allergy Severe HIVES 10/14/18 Yes Physical Exam: PE: See Above Constitutional: Well developed, well nourished, no acute distress, non-toxic appearance. [] HENT: Normocephalic, atraumatic, bilateral external ears normal, nose normal. [] Eyes: PERRLA, EOMI, conjunctiva normal, no discharge. [] Neck: Normal range of motion, supple, nontender, no nuchal rigidity no stridor. [] Cardiovascular:Heart rate regular rhythm Lungs & Thorax: Respirations even and unlabored, no retractions, no respiratory distress Skin: Warm, dry, no erythema, no rash. [] Extremities: No cyanosis, ROM intact, no edema. [] Neurologic: Alert and oriented X 3, normal motor, no focal deficits noted. [] Psychologic: Affect normal, judgement normal, mood normal. [] Current Patient Data: Vital Signs: Vital Signs Date Time Temp Pulse Resp B/P (MAP) Pulse Ox O2 Delivery O2 Flow Rate FiO2 10/31/20 21:48 98.2 108 18 116/82 (101) 98 Room Air 98.2 EKG: EKG: [] Heart Score: C/O Chest Pain: No Risk Scores: S Radiology/Procedures: Radiology/Procedures: [] Course & Med Decision Making: Course & Med Decision Making Pertinent Labs and Imaging studies reviewed. (See chart for details) Patient is a 30-year-old female who presents emergency department for with complaints of a posterior headache. Patient was given 30 mg of IM Toradol and 60 mg of IM Norflex. She reported complete relief of her headache after these medications. Encouraged patient to follow-up with her primary care doctor this week, prescription written for Flexeril to take as needed if headache recurs. Return to the ER if symptoms worsen or fever develops. Patient verbalized an understanding of home care, medications, follow-up, and return to ED instructions and was in agreement with the plan of care. [] Dragon Disclaimer: Dragon Disclaimer: This electronic medical record was generated, in whole or in part, using a voice recognition dictation system. Departure Departure Impression: Primary Impression: Acute tension headache Disposition: HOME / SELF CARE / HOMELESS Condition: STABLE Referrals: NO PCP (PCP) JOVANI MARTINEZ MD Patient Instructions: Tension Headache, [id number] Additional Instructions: Fill the prescription and use it as directed. Follow-up with your primary care doctor this week, return to the ER if symptoms worsen or fever develops. Scripts Cyclobenzaprine Hcl (CYCLOBENZAPRINE HCL) 10 Mg Tablet 1 TAB PO TID PRN for HEADACHE for 5 Days, #15 TAB 0 Refills Prov: HELENE DELEON APRN 10/31/20 Problem Qualifiers Primary Impression: Acute tension headache Intractability: not intractable Qualified Codes: G44.209 - Tension-type headache, unspecified, not intractable HELENE DELEON APRN Oct 31, 2020 22:52
== END 2020-10-31 22:55 | disposition home or self-care (01) ==
LOC: ER 21:09
DX: G44.209 Tension-type headache, unspecified, not intractable (principal); F17.200 Nicotine dependence, unspecified, uncomplicated; Z88.8 Allergy status to other drugs, medicaments and biological substances
CPT/HCPCS: 96372; 99284; J1885; J2360; 99283

== ENCOUNTER 2020-11-30 11:02 | Emergency (ER) | payer OTHER ==
[~2020-11-30] VITALS: Ht 160 cm; Wt 87.8 kg
[~2020-11-30 11:02] MED LIST changes: +CYCL10TA2 PO
--- NOTE | 2020-11-30 12:31 | RAD ---
XR FOOT_RIGHT 3 VIEWS History: Reason: pain after fall one week ago / Spl. Instructions: / History: Technique: 3 views right foot. Comparison: None. Findings: Normal alignment. No acute fracture. Impression: 1. No acute osseous abnormalities. Electronically signed by: Tito Sethi DO (11/30/2020 12:29 PM) [id number]
--- NOTE | 2020-11-30 12:49 | PHYS DOC ---
Past Medical History Past Medical History: Other Additional Past Medical Histor: MS Past Surgical History: Hysterectomy, Tubal ligation Smoking Status: Current Every Day Smoker Alcohol Use: None Drug Use: None, Amphetamine General Adult EDM: Chief Complaint: TOE PROBLEM HPI: HPI: Patient is a 30 year old female presents emergency department complaining of right foot pain after a fall down steps approximately week ago. Patient denies any other aches or pains. Patient fears she may have broken her foot. Patient denies taking any pain medications at home for the pain. Patient denies trying any nonpharmacological pain relief over the past week. Patient denies any other physical complaints or physical concerns. Review of Systems: Review of Systems: 14 body systems of review of systems have been reviewed. See HPI for pertinent positives and negative responses, otherwise all other systems are negative, nonpertinent or noncontributory. Constitutional: Negative except as outlined in HPI above. Skin: Negative except as outlined in HPI above. Eyes: Negative except as outlined in HPI above. HENT: Negative except as outlined in HPI above. Respiratory: Negative except as outlined in HPI above. Cardiovascular: Negative except as outlined in HPI above. GI: Negative except as outlined in HPI above. : Negative except as outlined in HPI above. Musculoskeletal: Negative except as outlined in HPI above. Integument: Negative except as outlined in HPI above. Neurologic: Negative except as outlined in HPI above. Endocrine: Negative except as outlined in HPI above. Lymphatic: Negative except as outlined in HPI above. Psychiatric: Negative except as outlined in HPI above. Heart Score: C/O Chest Pain: No Risk Factors: Risk Factors: DM, Current or recent (<one month) smoker, HTN, HLP, family history of CAD, obesity. Risk Scores: Score 0 - 3: 2.5% MACE over next 6 weeks - Discharge Home Score 4 - 6: 20.3% MACE over next 6 weeks - Admit for Clinical Observation Score 7 - 10: 72.7% MACE over next 6 weeks - Early Invasive Strategies Allergies: Allergies: Allergies Coded Allergies Type Severity Reaction Last Updated Verified pregabalin Allergy Severe HIVES 10/14/18 Yes Physical Exam: PE: Constitutional: Well developed, well nourished, no acute distress, non-toxic appearance. 30-year-old female in no apparent distress. Patient's reported pain level exceeds patient's physical presentation and examination. HENT: Normocephalic, atraumatic. Eyes: Conjunctiva normal, no discharge. Neck: Normal range of motion, no stridor. Cardiovascular: No cyanosis appreciated, distal cap refill less than 2 seconds. Lungs & Thorax: Patient is in no respiratory distress, no audible adventitious lung sounds appreciated. Abdomen: Nontender, no abnormalities noted. Skin: Warm, dry, no erythema, no rash. Back: No tenderness, no deformities. Extremities: No tenderness, no cyanosis, no clubbing, ROM intact, no edema. Except for right foot, pain to first metatarsal dorsal aspect foot, no deformities appreciated, no swelling appreciated, no edema appreciated, distal cap refill less than 2 seconds, 2+ dorsalis pedis/posterior tibial pulse. Minimal passive range of motion of great toe related to patient's complaint of pain. Neurologic: Alert and oriented X 3, normal motor function, normal sensory function, no focal deficits noted. Psychologic: Affect normal, judgement normal, mood normal. Current Patient Data: Vital Signs: Vital Signs Date Time Temp Pulse Resp B/P (MAP) Pulse Ox O2 Delivery O2 Flow Rate FiO2 11/30/20 11:10 98.4 104 16 160/98 100 Room Air 98.4 EKG: EKG: [] Radiology/Procedures: Radiology/Procedures: PATIENT: ADRIANA SILVA ACCOUNT: [id number] : 1990 LOCATION: ER AGE: 30 SEX: F EXAM STATUS: REG ER ORD. PHYSICIAN: SHARON CAMPBELL APRN REASON: pain after fall one week ago PROCEDURE: FOOT RIGHT 3V XR FOOT_RIGHT 3 VIEWS History: Reason: pain after fall one week ago / Spl. Instructions: / History: Technique: 3 views right foot. Comparison: None. Findings: Normal alignment. No acute fracture. Impression: 1. No acute osseous abnormalities. Electronically signed by: Tito Sethi DO (11/30/2020 12:29 PM) [id number] DICTATED and SIGNED BY: TITO SETHI DO DATE: 11/30/20 [id number] Course & Med Decision Making: Course & Med Decision Making Pertinent Labs and Imaging studies reviewed. (See chart for details) 30-year-old female, vital signs reviewed, presents to the emergency department chief complaint of right foot pain after fall a week ago. Patient had no physical signs of injury, will order x-ray right foot related to patient's explanation of events. X-ray unremarkable, no fractures appreciated. Discussed findings with patient, will prescribe pain medication, recommended Alvaro wrap for comfort. Follow-up with primary care, patient reports she has appointment on 30 December with her primary care physician Dr. Spring. Discussed with the patient all findings and diagnostic testing as well as the need to follow-up with their primary care provider for further evaluation and treatment or return to the ED if any new or worsening symptoms. Strict return precautions were also discussed at length, the patient voiced understanding and agreement with the discharge planning. The patient was nontoxic in appearance, in no apparent distress, and hemodynamically stable at the time of disposition. Dragon Disclaimer: Dragon Disclaimer: This electronic medical record was generated, in whole or in part, using a voice recognition dictation system. Departure Departure Impression: Primary Impression: Contusion of right foot Qualified Codes: S90.31XA - Contusion of right foot, initial encounter Disposition: HOME / SELF CARE / HOMELESS Condition: GOOD Referrals: NO PCP (PCP) Patient Instructions: Contusion Additional Instructions: You were seen today in the emergency department for right foot pain after a fall a week ago. An x-ray was performed, there were no concerning findings of a broken bone or injury to your foot. An Alvaro wrap was placed on your foot today in the emergency department, please use as needed for comfort, please keep your appointment with your primary care doctor coming up December 28 for ongoing pain management. Please take prescriptions as directed. Thank you for visiting our Emergency Department. It was a pleasure taking care of you today in the emergency department and we appreciate you trusting us with your care. If any additional problems come up don't hesitate to return to visit us. Please follow up with your primary care provider so they can plan additional care if needed and know about the problem that you had. If symptoms worsen come back to the Emergency Department. Any concerning symptoms that start such as chest pain, shortness of air, weakness or numbness on one side of the body, running high fevers or any other concerning symptoms return to the ER. EMERGENCY DEPARTMENT GENERAL DISCHARGE INSTRUCTIONS Thank you for coming to [facility] Emergency Department (ED) today and trusting us with you care. We trust that you had a positive experience in our Emergency Department. If you wish to speak to the department management, you may call the Director at [phone]. YOUR FOLLOW UP INSTRUCTIONS ARE FOLLOWS: 1. Do you have a private Doctor? If you do not have a private doctor, please ask for a resource list of physicians or clinics that may be able to assist you with follow up care. 2. The Emergency Physicain has interpreted your x-rays. The X-Ray specialist will also review them. If there is a change in the findings, you will be notified in 48 h ours when at all possible. 3. A lab test or culture has been done, your results will be reviewed and you will be notified if you need a change in treatment. ADDITIONAL INSTRUCTIONS AND INFORMATION: 1. Your care today has been supervised by a physician who is specially trained in emergency care. Many problems require more than one evaluation for a complete diagnosis and treatment. We recommend that you schedule your follow up appointment as recommended to ensure complete treatment of you illness or injury. If you are unable to obtain follow up care and continue to have a problem, or if your condition worsens, we recommend that you return to the ED. 2. We are not able to safely determine your condition over the phone nor are we able to give sound medical advice over the phone. For these safety reasons, if you call for medical advice we will ask you to come to the ED for further evaluation. 3. If you have any questions regarding these discharge instructions please call the ED at [phone]. SAFETY INFORMATION: In the interest of safety, wellness, and injury prevention; we encourage you to wear your sealbelt, if you smoke; quite smoking, and we encourage family to use a protective helmet for bicycling and other sporting events that present an increased risk for head injury. IF YOUR SYMPTOMS WORSEN OR NEW SYMPTOMS DEVELOP, OR YOU HAVE CONCERNS ABOUT YOUR CONDITION; OR IF YOUR CONDITION WORSENS WHILE YOU ARE WAITING FOR YOUR FOLLOW UP APPOINTMENT; EITHER CONTACT YOUR PRIMARY CARE DOCTOR, THE PHYSICIAN WHOSE NAME AND NUMBER YOU WERE GIVEN, OR RETURN TO THE ED IMMEDIATELY. Scripts Hydrocodone Bit/Acetaminophen (HYDROCODONE-APAP 5-325 ) 1 Tab Tablet 1 TAB PO PRN Q6HRS PRN for PAIN, #10 TAB 0 Refills Prov: SHARON CAMPBELL APRN 11/30/20 SHARON CAMPBELL APRN Nov 30, 2020 12:49
[2020-11-30] MEDS ORDERED: HYDR-2761 PO (13:05)
[2020-11-30 13:50] VITALS: BP 145/98
== END 2020-11-30 14:04 | disposition home or self-care (01) ==
LOC: ER 11:02
DX: S90.31XA Contusion of right foot, initial encounter (principal); Z88.8 Allergy status to other drugs, medicaments and biological substances; F17.200 Nicotine dependence, unspecified, uncomplicated; W10.8XXA Fall (on) (from) other stairs and steps, initial encounter; Y93.89 Activity, other specified; Y92.89 Other specified places as the place of occurrence of the external cause; Y99.8 Other external cause status
CPT/HCPCS: 73630; 99284

== ENCOUNTER 2021-02-17 11:44 | Emergency (ER) | payer OTHER ==
[~2021-02-17] VITALS: Ht 160 cm; Wt 83.6 kg
[~2021-02-17 11:44] MED LIST changes: -CITA10TA4 PO; +CITA10TA5 PO; +CYCL10TA19 PO; -CYCL10TA2 PO
[2021-02-17 13:44] VITALS: BP 110/71
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
[2021-02-17] MEDS ORDERED: CYCL10TA19 PO (14:26)
[2021-02-17] MEDS ORDERED: NAPR500T8 PO (14:26)
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
== END 2021-02-17 14:40 | disposition home or self-care (01) ==
LOC: ER 11:44
DX: S13.9XXA Sprain of joints and ligaments of unspecified parts of neck, initial encounter (principal); M54.59 Other low back pain; F17.200 Nicotine dependence, unspecified, uncomplicated; Z88.8 Allergy status to other drugs, medicaments and biological substances; V89.2XXA Person injured in unspecified motor-vehicle accident, traffic, initial encounter; Y93.89 Activity, other specified; Y92.89 Other specified places as the place of occurrence of the external cause; Y99.8 Other external cause status
CPT/HCPCS: 72040; 72100; 99284